=== PATIENT | female | born 1955 | race Caucasian/White ===

== ENCOUNTER 2018-11-26 13:54 | Emergency (ER) | payer MEDICARE, BC ==
[~2018-11-26] VITALS: Ht 162.6 cm; Wt 65.9 kg
[2018-11-26 13:57] VITALS: TEMP 98.7
[2018-11-26] MEDS ORDERED: FLEXERIL 1010 MG/TAB PO (14:04)
[2018-11-26] MEDS ORDERED: TIAZAC180 MG PO (14:26)
[2018-11-26 14:45] VITALS: BP 107/75; PULSE 96
== END 2018-11-26 14:46 | disposition home or self-care (01) ==
LOC: COL.ER 13:54
DX: I47.1 Supraventricular tachycardia (principal); Z98.51 Tubal ligation status
CPT/HCPCS: J0153; J7030